=== PATIENT | male | born 1975 | race Caucasian/White ===

== ENCOUNTER 2024-10-03 09:26 | Outpatient (CLI) | payer BC ==
[2024-10-03] MEDS ORDERED: Barium Sulfate 96% 176 GM BOT (xray ONLY) ONE (09:43)
[2024-10-03] MEDS ORDERED: E-Z-HD 98% W/W 340GM BOT (x-ray ONLY) ONE (09:43)
== END 2024-10-03 09:27 | disposition home or self-care (01) ==
LOC: RAD 09:26
PROVIDERS: ATTEND Specialist
DX: K21.9 Gastro-esophageal reflux disease without esophagitis (principal); R13.10 Dysphagia, unspecified; K44.9 Diaphragmatic hernia without obstruction or gangrene
CPT/HCPCS: 74246